=== PATIENT | male | born 1955 | race Hispanic/Latino ===

== ENCOUNTER 2021-02-11 06:41 | Day surgery (SDC) | payer OTHER ==
[2021-02-08 10:35] VITALS: BP 143/91
[2021-02-08 11:02] LABS: CREATININE 0.7 mg/dL (0.5-1.5)
[2021-02-11] VITALS (13 sets, daily range): BP systolic 98–141; BP diastolic 64–110
[~2021-02-11] VITALS: Ht 157.5 cm; Wt 61.4 kg
[~2021-02-11 06:41] MED LIST: GLIP10TA9 PO; METF-446 PO
[2021-02-11] MEDS ORDERED: 0.9%NACL 1000ML 1,000 ML IV ONE (07:13)
[2021-02-11] MEDS ORDERED: LIDOCAINE PF 100MG/5ML (2%) SYRINGE 5ML ONE (07:55)
[2021-02-11] MEDS ORDERED: MIDAZOLAM HCL 1 MG/ML 2ML VIAL ONE (07:55)
[2021-02-11] MEDS ORDERED: DEXAMETHASONE SOD PHOSPHATE 10MG/ML 1ML VIAL ONE (07:55)
[2021-02-11] MEDS ORDERED: SUCCINYLCHOLINE 200MG/10ML SYR ONE ×3 (07:55→07:56)
[2021-02-11] MEDS ORDERED: GLYCOPYRROLATE 1 MG/5 ML SYRINGE ONE (07:56)
[2021-02-11] MEDS ORDERED: PROPOFOL 10 MG/ML 20ML VIAL IV ONE (07:56)
[2021-02-11] MEDS ORDERED: ROCURONIUM 10MG/1ML SYR 10 MG/ML ML ONE (07:56)
[2021-02-11] MEDS ORDERED: FENTANYL CITRATE PF 50 MCG/1 ML 2ML VIAL ONE (07:56)
[2021-02-11] MEDS ORDERED: NEOSTIGMINE 5MG/5ML SYR IV ONE (07:56)
[2021-02-11] MEDS ORDERED: CEFTRIAXONE 1G VIAL IVP ONE (08:00)
[2021-02-11] MEDS ORDERED: LIDOCAINE HCL 2% PF 20 ML JEL DISP.SYRIN MM ONE (08:14)
== END 2021-02-11 10:05 | disposition home or self-care (01) ==
LOC: DAH 06:41
PROVIDERS: ATTEND Urology
DX: R97.20 Elevated prostate specific antigen [PSA] (principal); Z20.822 Contact with and (suspected) exposure to COVID-19; N40.0 Benign prostatic hyperplasia without lower urinary tract symptoms; K62.4 Stenosis of anus and rectum; Z79.899 Other long term (current) drug therapy; E11.9 Type 2 diabetes mellitus without complications; Z79.84 Long term (current) use of oral hypoglycemic drugs; Z86.12 Personal history of poliomyelitis
CPT/HCPCS: 36415; 76872; 80048; 82948; 87635; 88305; 88341; 88342; C9803; J0330; J0696; J1100; J2001; J2250; J2704; J2710; J3010; J3490; J7030

== ENCOUNTER 2024-03-14 06:43 | Day surgery (SDC) | payer OTHER ==
[2024-03-12 13:00] LABS: BASOPHILS # (AUTO) 0.08 K/uL (0.00-0.20); BASOPHILS % (AUTO) 1.2 % (0.0-5.0); EOSINOPHILS # (AUTO) 0.31 K/uL (0.00-0.70); EOSINOPHILS % (AUTO) 4.8 % (0.0-8.0); HEMATOCRIT 45.6 % (42-54); IMMATURE GRANULOCYTE ABSOLUTE 0.03 K/uL (0-1); LYMPHOCYTES # (AUTO) 2.1 K/uL (1.0-4.8); LYMPHOCYTES % (AUTO) 32.6 % (21.0-51.0); MEAN CORPUSCULAR HGB CONC 32.5 g/dL (32.0-36.0); MEAN CORPUSCULAR VOLUME 89.4 fL (79-99); MONOCYTES # (AUTO) 0.4 K/uL (0.1-1.0); MONOCYTES % (AUTO) 6.4 % (3.0-13.0); NEUTROPHILS # (AUTO) 3.5 K/uL (1.8-7.7); NEUTROPHILS % (AUTO) 54.5 % (40.0-77.0); PLATELET COUNT (AUTO) 239 K/uL (130-400); RED CELL DISTRIBUTION WIDTH 13.7 % (11.0-15.5); WHITE BLOOD COUNT (AUTO) 6.4 K/uL (4.8-10.8)
[2024-03-12 13:09] LABS: CREATININE 0.7 mg/dL (0.5-1.3); POTASSIUM 3.9 mmol/L (3.5-5.1)
[2024-03-12 13:30] VITALS: BP 138/84; PULSE 74; RESP 18; TEMP 97.3
[~2024-03-14] VITALS: Ht 157.5 cm; Wt 59.0 kg
[2024-03-14] VITALS (18 sets, daily range): BP systolic 92–136; BP diastolic 44–87; PULSE 60–76; RESP 14–18; TEMP 96.9–97.6
[~2024-03-14 06:43] MED LIST changes: +EMPA10TA PO; +FINA5TAB41 PO; +GLIP10TA16 PO; -GLIP10TA9 PO; +SIMV10TA97 PO; +TADA20TA PO; +augmentin PO
[2024-03-14] MEDS: cefTRIAXone 1G VIAL ONE (08:02)
[2024-03-14] MEDS: LACTATED RINGERS 1000ML 1,000 ML IV ONE (08:02)
[2024-03-14] MEDS ORDERED: ondanSETRON 4MG INJ ONE (09:45)
[2024-03-14] MEDS ORDERED: MIDAZOLAM HCL 1 MG/ML 2ML VIAL ONE (09:45)
[2024-03-14] MEDS ORDERED: dexaMETHasone SOD PHOSPHATE 10MG/ML 1ML VIAL ONE (09:45)
[2024-03-14] MEDS ORDERED: LIDOCAINE PF 100MG/5ML (2%) SYRINGE 5ML ONE (09:45)
[2024-03-14] MEDS ORDERED: proPOFol 10 MG/ML 20ML VIAL IV ONE (09:46)
[2024-03-14] MEDS ORDERED: rocuRONium bROMide 10MG/1ML 5ML VL ONE (09:46)
[2024-03-14] MEDS ORDERED: SUCCINYLCHOLINE CHLORIDE 20 MG/ML 10 ML VIAL ONE (09:46)
[2024-03-14] MEDS ORDERED: GLYCOPYRROLATE 0.2 MG/ML 5 ML VIAL ONE (09:46)
[2024-03-14] MEDS ORDERED: NEOSTIGMINE METHYLSULFATE 1MG/ML IV ONE (09:46)
[2024-03-14] MEDS ORDERED: FENTanyl CITRate PF 50 MCG/1 ML 2ML VIAL ONE (09:48)
[2024-03-14] MEDS: LIDOCAINE HCL 2% PF 20 ML JEL DISP.SYRIN MM ONE (11:15)
== END 2024-03-14 13:10 | disposition home or self-care (01) ==
LOC: DAH 06:43
PROVIDERS: ATTEND Urology
DX: C61 Malignant neoplasm of prostate (principal); E11.9 Type 2 diabetes mellitus without complications; N40.0 Benign prostatic hyperplasia without lower urinary tract symptoms; R97.20 Elevated prostate specific antigen [PSA]; Z79.01 Long term (current) use of anticoagulants; Z79.899 Other long term (current) drug therapy
CPT/HCPCS: 80048; 85025; 36415; 55700; 82948 ×2; 88305; 76872; A6260; A4663; J7030; J7120; J3010; J1100; J0330; J3490 ×2; J2003; J0696; J2250; J2704; J2405; J2710; A4215 ×2; A4649; A4223; A4222; A4221